=== PATIENT | male | born 1985 | race Caucasian/White ===

== ENCOUNTER 2016-12-17 11:14 | Emergency (ER) | payer MEDICAID ==
[~2016-12-17] VITALS: Ht 167.6 cm; Wt 77.1 kg
[2016-12-17 11:36] VITALS: BP 159/115
== END 2016-12-17 12:08 | disposition home or self-care (01) ==
LOC: ER 11:14
DX: J01.90 Acute sinusitis, unspecified (principal); H66.92 Otitis media, unspecified, left ear; Z88.8 Allergy status to other drugs, medicaments and biological substances

== ENCOUNTER → 2019-05-21 | Emergency (ER) | payer MEDICAID ==
[~2019-05-21] VITALS: Ht 167.6 cm; Wt 68.0 kg
[~2019-05-21] MED LIST: AZITHROMYCIN 500MG/ 250ML 250 ML IV ONE; SODIUM CHLORIDE 0.9% 1,000 ML IV ONE
[2019-05-21 22:34] LABS: Basophils # (auto) 0.1 10 ^3/uL (0-0.2); Basophils % (auto) 0.5 % (0.0-2.0); Eosinophils # (auto) 0.1 10 ^3/uL (0-0.8); Eosinophils % (auto) 0.9 % (0.0-7.0); Hematocrit 42.8 % (41.0-53.0); Hemoglobin 14.5 g/dL (13.5-17.5); Lymphocytes # (auto) 1.7 10 ^3/uL (0.4-5.4); Lymphocytes % (auto) 10.7 % (10.0-50.0); Mean Corpuscular Hemoglobin 29.6 pg (28.0-32.0); Mean Corpuscular Hgb Conc. 33.8 g/dL (32.0-36.0); Mean Corpuscular Volume 87.7 fL (80.0-100.0); Monocytes # (auto) 0.8 10 ^3/uL (0-1.3); Monocytes % (auto) 5.2 % (0.0-12.0); Neutrophils # (auto) 12.9 10 ^3/uL (1.6-8.6); Neutrophils % (auto) 82.7 % (37.0-80.0); Platelet Count (auto) 472 10^3/uL (140-450); Red Blood Cells 4.88 10^6/uL (4.5-5.90); Red Cell Distribution Width 13.4 % (11.8-14.3); White Blood Cell 15.6 10^3/uL (4.4-10.8)
[2019-05-21 23:06] LABS: Albumin 2.7 g/dL (3.4-5.0); BUN/Creatinine Ratio 15.3; Calcium 8.6 mg/dL (8.5-10.1); Potassium 3.8 mmol/L (3.5-5.1)
[2019-05-21 23:09] LABS: Bilirubin, Total 0.3 mg/dL (0.2-1.0)
[2019-05-22 02:16] VITALS: BP 128/74
== END | disposition home or self-care (01) ==
LOC: ER 21:08
DX: J06.9 Acute upper respiratory infection, unspecified (principal)
CPT/HCPCS: 36415; 71045; 80053; 83605; 85025; 87040; 96365; 96366; 99284; J0456

== ENCOUNTER 2019-12-01 21:11 | Inpatient (IN) | payer MEDICAID ==
[~2019-12-01] VITALS: Ht 167.6 cm; Wt 67.6 kg
[2019-12-02] MEDS ORDERED: PIPERACILLIN-TAZOB 3.375GM 100 ML IV ONE (03:45)
[2019-12-02 04:46] LABS: Basophils # (auto) 0.1 10 ^3/uL (0-0.2); Basophils % (auto) 0.4 % (0.0-2.0); Eosinophils # (auto) 0.3 10 ^3/uL (0-0.8); Eosinophils % (auto) 2.2 % (0.0-7.0); Hematocrit 40.4 % (41.0-53.0); Hemoglobin 13.7 g/dL (13.5-17.5); Lymphocytes # (auto) 2.4 10 ^3/uL (0.4-5.4); Lymphocytes % (auto) 20.7 % (10.0-50.0); Mean Corpuscular Hemoglobin 29.1 pg (28.0-32.0); Mean Corpuscular Volume 85.4 fL (80.0-100.0); Monocytes # (auto) 1.1 10 ^3/uL (0-1.3); Monocytes % (auto) 9.3 % (0.0-12.0); Neutrophils # (auto) 7.7 10 ^3/uL (1.6-8.6); Neutrophils % (auto) 67.4 % (37.0-80.0); Nucleated Red Blood Cells % 0.1 %; Platelet Count (auto) 321 10^3/uL (140-450); Red Blood Cells 4.73 10^6/uL (4.5-5.90); Red Cell Distribution Width 15.6 % (11.8-14.3); White Blood Cell 11.4 10^3/uL (4.4-10.8)
[2019-12-02 05:00] LABS: Albumin 3.3 g/dL (3.4-5.0); BUN/Creatinine Ratio 11.5; Calcium 8.6 mg/dL (8.5-10.1); Potassium 3.6 mmol/L (3.5-5.1)
[2019-12-02 05:04] LABS: Bilirubin, Total 0.3 mg/dL (0.2-1.0); INR 0.97 (0.9-1.15); Total Protein 7.3 g/dL (6.4-8.2)
[2019-12-02] MEDS ORDERED: ACETAMINOPHEN 325 MG TAB PO PRN (06:15)
[2019-12-02] MEDS ORDERED: MORPHINE SULF INJ 2 MG/ML SYRINGE 1ML IV PRN (06:15)
[2019-12-02] MEDS ORDERED: NITROGLYCERIN 0.4 MG SL TAB SL PRN (06:15)
[2019-12-02] MEDS ORDERED: ONDANSETRON HCL 4 MG/2 ML VIAL IV PRN (06:15)
[2019-12-02] MEDS ORDERED: DOCUSATE SOD 100 MG CAP PO PRN (06:15)
[2019-12-02] MEDS: ZINC SULFATE 220mg CAP or TAB PO SCH (10:02)
[2019-12-02] MEDS: FAMOTIDINE 20 MG TAB PO SCH ×2 (10:02→22:13)
[2019-12-02] MEDS: ASCORBIC ACID 500 MG TAB PO SCH ×2 (10:03→22:12)
[2019-12-02] MEDS: ENOXAPARIN SOD 40 MG/0.4 ML SYRINGE SC SCH (10:03)
[2019-12-02] MEDS: HYDROcodone-ACET 5/325MG TAB PO PRN ×3 (10:04→22:17)
[2019-12-02 10:06] LABS: Basophils # (auto) 0 10 ^3/uL (0-0.2); Basophils % (auto) 0.3 % (0.0-2.0); Eosinophils # (auto) 0.2 10 ^3/uL (0-0.8); Eosinophils % (auto) 2.1 % (0.0-7.0); Hemoglobin 14.3 g/dL (13.5-17.5); Lymphocytes # (auto) 1.5 10 ^3/uL (0.4-5.4); Lymphocytes % (auto) 17.8 % (10.0-50.0); Mean Corpuscular Hemoglobin 28.9 pg (28.0-32.0); Mean Corpuscular Hgb Conc. 34.1 g/dL (32.0-36.0); Mean Corpuscular Volume 84.6 fL (80.0-100.0); Monocytes # (auto) 0.8 10 ^3/uL (0-1.3); Monocytes % (auto) 9.5 % (0.0-12.0); Neutrophils % (auto) 70.3 % (37.0-80.0); Nucleated Red Blood Cells % 0.2 %; Platelet Count (auto) 331 10^3/uL (140-450); Red Blood Cells 4.96 10^6/uL (4.5-5.90); Red Cell Distribution Width 15.3 % (11.8-14.3); White Blood Cell 8.5 10^3/uL (4.4-10.8)
[2019-12-02 10:24] LABS: Calcium 8.9 mg/dL (8.5-10.1); Potassium 3.7 mmol/L (3.5-5.1)
--- NOTE | 2019-12-02 12:13 | NUR ---
MS admit from ER NATASHA QUINTERO admitted to tele/MS after SBAR received. Patient oriented to primary RN, unit, room, bed, and unit policies regarding patient care. Patient weighed by bedscale and encouraged to call if they need something. All questions and concerns addressed, patient verbalized understanding.
[2019-12-02 13:00] VITALS: BP 135/78
[2019-12-02] MEDS ORDERED: PIPERACILLIN-TAZOB 3.375GM 100 ML IV SCH (14:00)
[2019-12-02] MEDS: PIPERACILLIN-TAZOB 3.375GM 100 ML IV SCH ×2 (14:10→22:14)
[2019-12-02] MEDS: SODIUM CHLOR 0.9% PF (SALINE LOCK) 10ML VIAL/SYR IV SCH ×2 (14:11→22:11)
[2019-12-02] MEDS: BISACODYL 5 MG EC TAB PO SCH (14:17)
--- NOTE | 2019-12-02 16:56 | NUR ---
PT REPORTS THAT HE WALKS FINE AND HIS HAND IS FEELING BETTER. PT DENIES NEED FOR P.T.
[2019-12-02 17:09] VITALS: BP 118/72
--- NOTE | 2019-12-02 19:55 | NUR ---
Opening Shift Note Assumed care of patient, awake and alert. No S/S of distress/SOB. Instructed on POC and to call for assist PRN. Bed is in lowest locked position with bed rails up and call light is within reach of the patient.
[2019-12-02 22:00] VITALS: BP 104/57
[2019-12-02] MEDS: SENNA 8.6 MG TAB PO SCH (22:13)
[2019-12-03 05:00] VITALS: BP 135/72
[2019-12-03 05:22] LABS: Urine Bacteria FEW /hpf (None Seen); Urine Blood TRACE /uL (Negative); Urine WBC 1 /hpf (0 - 3)
[2019-12-03] MEDS: SODIUM CHLOR 0.9% PF (SALINE LOCK) 10ML VIAL/SYR IV SCH ×3 (05:33→21:30)
[2019-12-03] MEDS: PIPERACILLIN-TAZOB 3.375GM 100 ML IV SCH ×3 (05:37→21:29)
[2019-12-03 05:46] LABS: Amphetamine Screen, Urine POSITIVE (NEGATIVE); Barbiturate Scree,Urine NEGATIVE (NEGATIVE); Benzodiazephine Screen, Urine NEGATIVE (NEGATIVE); Cannabinoid Screen, Urine NEGATIVE (NEGATIVE); Cocaine Screen, Urine NEGATIVE (NEGATIVE); Opiate Scree,Urine POSITIVE (NEGATIVE)
[2019-12-03 05:53] LABS: Phencyclidine Screen, Urine NEGATIVE (NEGATIVE)
[2019-12-03 07:40] LABS: Hematocrit 44.7 % (41.0-53.0); Hemoglobin 14.9 g/dL (13.5-17.5); Mean Corpuscular Hemoglobin 29.4 pg (28.0-32.0); Mean Corpuscular Hgb Conc. 33.3 g/dL (32.0-36.0); Mean Corpuscular Volume 88.1 fL (80.0-100.0); Platelet Count (auto) 351 10^3/uL (140-450); Red Blood Cells 5.07 10^6/uL (4.5-5.90); White Blood Cell 9.1 10^3/uL (4.4-10.8)
[2019-12-03 07:41] LABS: Band Neutrophils % (manual) 0; Basophils % (manual) 0 (0.0-2.0); Blast Cells 0; Metamyelocytes % 0; Myelocytes % 0; Promyelocytes % 0; Reactive Lymphocytes 0
[2019-12-03 07:56] LABS: Albumin 2.9 g/dL (3.4-5.0); BUN/Creatinine Ratio 10.8; Bilirubin, Total 0.4 mg/dL (0.2-1.0); Calcium 8.9 mg/dL (8.5-10.1); Total Protein 6.9 g/dL (6.4-8.2)
[2019-12-03 08:25] VITALS: BP 123/82
[2019-12-03] MEDS: BISACODYL 5 MG EC TAB PO SCH (10:12)
[2019-12-03] MEDS: ZINC SULFATE 220mg CAP or TAB PO SCH (10:12)
[2019-12-03] MEDS: ENOXAPARIN SOD 40 MG/0.4 ML SYRINGE SC SCH (10:12)
[2019-12-03] MEDS: FAMOTIDINE 20 MG TAB PO SCH ×2 (10:12→21:29)
[2019-12-03] MEDS: ASCORBIC ACID 500 MG TAB PO SCH ×2 (10:13→21:30)
[2019-12-03] MEDS: HYDROcodone-ACET 5/325MG TAB PO PRN ×3 (10:13→22:50)
[2019-12-03 12:33] LABS: Eosinophils % (manual) 6 (0-7); Lymphocytes % (manual) 21 (10.0-50.0); Monocytes % (manual) 7 (0-12)
[2019-12-03 13:00] VITALS: BP 122/76
[2019-12-03 16:43] VITALS: BP 126/77
[2019-12-03] MEDS ORDERED: CLINDAMYCIN 300MG IV 50 ML IV ONE (19:00)
--- NOTE | 2019-12-03 19:40 | NUR ---
OPENING NOTE Received report from day shift RN. Patient is A&O X's 4 with no s/s of distress and has no complaints at this time. Educated patient on POC and to use call light when in need of any assistance. Patient verbalized understanding. Bed is in lowest/locked position with side rails up X's 2 and call light is within reach of patient. Will continue care.
[2019-12-03] MEDS: SENNA 8.6 MG TAB PO SCH (21:28)
--- NOTE | 2019-12-03 21:30 | NUR ---
IV insertion IV access obtained, via clean sterile technique by inserting 22 gauge catheter at RIGHT WRIST after TWO attempt(s). IV secured properly. No trauma to site. Patient tolerated procedure well.
--- NOTE | 2019-12-03 21:30 | NUR ---
IV removal 20G IV to left upper arm accidently removed by patient when patient was turning in bed. catheter fully intact. No trauma noted to site. Will insert new IV
[2019-12-03 22:00] VITALS: BP 138/75
[2019-12-04] MEDS: CLINDAMYCIN 300MG IV 50 ML IV SCH ×3 (02:45→18:02)
[2019-12-04] MEDS: HYDROcodone-ACET 5/325MG TAB PO PRN ×4 (02:53→20:48)
--- NOTE | 2019-12-04 02:53 | NUR ---
IV insertion IV access obtained, via clean sterile technique by inserting 22 gauge catheter at right hand after one attempt. IV secured properly. No trauma to site. Patient tolerated well. Patient accidently pulled out 22G IV to right wrist when sleeping. No trauma noted to site.
[2019-12-04 05:00] VITALS: BP 129/78
[2019-12-04] MEDS: SODIUM CHLOR 0.9% PF (SALINE LOCK) 10ML VIAL/SYR IV SCH ×3 (05:35→20:53)
[2019-12-04] MEDS: PIPERACILLIN-TAZOB 3.375GM 100 ML IV SCH ×3 (05:36→20:53)
[2019-12-04 06:38] LABS: Basophils # (auto) 0.1 10 ^3/uL (0-0.2); Basophils % (auto) 0.9 % (0.0-2.0); Eosinophils # (auto) 0.1 10 ^3/uL (0-0.8); Eosinophils % (auto) 1.3 % (0.0-7.0); Hematocrit 46.3 % (41.0-53.0); Hemoglobin 15.5 g/dL (13.5-17.5); Lymphocytes % (auto) 26.4 % (10.0-50.0); Mean Corpuscular Hemoglobin 28.5 pg (28.0-32.0); Mean Corpuscular Hgb Conc. 33.6 g/dL (32.0-36.0); Monocytes # (auto) 0.7 10 ^3/uL (0-1.3); Monocytes % (auto) 9.5 % (0.0-12.0); Neutrophils # (auto) 4.8 10 ^3/uL (1.6-8.6); Neutrophils % (auto) 61.9 % (37.0-80.0); Platelet Count (auto) 400 10^3/uL (140-450); Red Blood Cells 5.44 10^6/uL (4.5-5.90); Red Cell Distribution Width 15.4 % (11.8-14.3); White Blood Cell 7.7 10^3/uL (4.4-10.8)
[2019-12-04 07:08] LABS: Calcium 9.2 mg/dL (8.5-10.1)
[2019-12-04 07:12] LABS: BUN/Creatinine Ratio 8.9
--- NOTE | 2019-12-04 07:45 | NUR ---
RECEIVED PATIENT ALERT AND ORIENTED X4, NOT IN DISTRESS, CLEAR LS IN BILATERAL LUNG LOBES, RR=18 SAT=97%, DEEP BREATHING AND COUGHING WAS ENCOURAGED, DEMONSTRATED UNDERSTANDING, DENIED CHEST PAIN AND SOB, HEART R=76, ABDOMEN SOFT WITH ACTIVE BS, TOLERATED 100% OF PROVIDED BREAKFAST TRAY, LAST BM THIS MORNING REPORTED, C/O LT. ARM AND RT. SIDE BACK PAIN L=5/10 REPORTED, NORCO PO PRN IS PENDING ORDERED, SKIN INTACT WARM TO TOUCH, RADIAL AND PEDAL PULSES PALPABLE, CAP REFILL <3 SECONDS, RESTING ON BED, HEAD OF BED ELEVATED, BED ON LOW POSITION, RAILS UP X2, CALL LIGHT ON REACH, PENDING SS CONSULT, WILL CONTINUE MONITORING.
[2019-12-04] MEDS: ZINC SULFATE 220mg CAP or TAB PO SCH (09:27)
[2019-12-04] MEDS: FAMOTIDINE 20 MG TAB PO SCH ×2 (09:27→20:55)
[2019-12-04] MEDS: BISACODYL 5 MG EC TAB PO SCH (09:27)
[2019-12-04] MEDS: ENOXAPARIN SOD 40 MG/0.4 ML SYRINGE SC SCH (09:28)
[2019-12-04] MEDS: ASCORBIC ACID 500 MG TAB PO SCH ×2 (10:00→20:55)
--- NOTE | 2019-12-04 10:56 | NUR ---
NORCO PO PRN WAS GIVEN FOR GENERALIZED PAIN L=6/10, PAIN LEVEL SUBSIDED TO 4/10, TOLERATED SHOWER INDEPENDENTLY, RESTING ON BED, WILL CONTINUE MONITORING.
[2019-12-04 13:00] VITALS: BP 136/87
--- NOTE | 2019-12-04 13:47 | NUR ---
Assessment Social Service consult regarding patient being homeless. Patient states he was incarcerated and when he got release he did not want to return home with family and decided to stay in the streets. Discussed with patient options and resources for placement. Provided information to clothes closet and meal prior to discharge. Patient accepted. Offered patient taxi voucher within 30 miles and Patient agreed. Patient informed me he is planning to go to [place] an get into a program for his drug use before returning home with family. Completed home less assessment and patient signed homeless waiver. Will follow-up and provide intervention as appropriate. Informed KYLE Armando. Addendum: 12/04/19 at 1348 by VANDANA HOWELL Amended: Links added.
--- NOTE | 2019-12-04 16:44 | NUR ---
CONSENT FOR SMOKING SIGNED AND ON CHART, WENT WALKING OUT OF THE UNIT FOR SMOKING X2, PULL OUT RT. HAND IV SITE, PENDING NEW IV INSERTION, WILL CONTINUE MONITORING.
[2019-12-04 16:59] VITALS: BP 118/89
--- NOTE | 2019-12-04 18:05 | NUR ---
NEW IV SITE GARETT 22 INSERTED ON LT LOWER ARM, TOLERATED WELL, NOT IN DISTRESS, DENIED PAIN, SITTING ON BED EATING DINNER, WILL CONTINUE MONITORING.
--- NOTE | 2019-12-04 19:30 | NUR ---
RESTING ON BED, HEAD OF BED ELEVATED, BED ON LOW POSITION, RAILS UP X2, CALL LIGHT ON REACH, REPORT WAS GIVEN TO THE HOOKING MACHINE OPERATOR RN.
--- NOTE | 2019-12-04 19:40 | NUR ---
OPENING NOTE Received report from day shift RN. Patient is A&O X's 4 with no s/s of distress and has no complaints at this time. He is currently talking on the phone. Will educate patient on POC and to use call light when in need of any assistance. Patient verbalized understanding. Bed is in lowest/locked position with side rails up X's 2 and call light is within reach of patient. Will continue care.
[2019-12-04] MEDS: SENNA 8.6 MG TAB PO SCH (20:55)
[2019-12-04 22:00] VITALS: BP 133/58
[2019-12-05] MEDS: HYDROcodone-ACET 5/325MG TAB PO PRN ×2 (02:45→12:15)
[2019-12-05] MEDS: CLINDAMYCIN 300MG IV 50 ML IV SCH ×2 (02:47→11:00)
[2019-12-05 05:00] VITALS: BP 143/82
[2019-12-05] MEDS: SODIUM CHLOR 0.9% PF (SALINE LOCK) 10ML VIAL/SYR IV SCH ×2 (05:52→14:00)
[2019-12-05] MEDS: PIPERACILLIN-TAZOB 3.375GM 100 ML IV SCH (05:52)
[2019-12-05 09:00] VITALS: BP 119/74
[2019-12-05] MEDS: BISACODYL 5 MG EC TAB PO SCH (10:00)
[2019-12-05] MEDS: ASCORBIC ACID 500 MG TAB PO SCH (10:19)
[2019-12-05] MEDS: ZINC SULFATE 220mg CAP or TAB PO SCH (10:19)
[2019-12-05] MEDS: ENOXAPARIN SOD 40 MG/0.4 ML SYRINGE SC SCH (10:20)
[2019-12-05] MEDS: FAMOTIDINE 20 MG TAB PO SCH (10:20)
--- NOTE | 2019-12-05 12:45 | NUR ---
Nutrition Assessment Notes Please refer to link for full assessment notes. Est Energy needs: [id number] kcals (25-30 kcal/kgBW) Est Protein needs: 54-68 gms/day (1.0-1.1 gm/kgBW) Will continue to monitor and reassess prn. Addendum: 12/05/19 at [address] Amended: Links added.
[2019-12-05 13:00] VITALS: BP 134/85
[2019-12-05] MEDS ORDERED: CLINDAMYCIN HCL 150 MG CAP PO SCH (14:00)
--- NOTE | 2019-12-05 14:55 | NUR ---
Discharge instructions given as ordered. Encourage to follow up with PMD as instructed. All questions and concerns addressed. Patient verbalized understanding. Medication reconciliation form completed and copy given to patient. Home medications held in Pharmacy returned to patient. IV removed with catheter intact, pressure dressing applied. Patient AMBULATED to vehicle with all personal belongings, accompanied by staff. No distress noted at time of departure.
[2019-12-05] MEDS ORDERED: CIPROFLOXACIN HCL 500 MG TAB PO SCH (22:00)
== END 2019-12-05 14:55 | disposition home or self-care (01) | DRG 383 ==
LOC: ER 21:11 → OVERFLOW 21:12 → WEST WING 12-02 12:18
PROVIDERS: ADMIT Nurse Practitioner Family; ATTEND Internal Medicine
DX: L03.114 Cellulitis of left upper limb (principal); F15.10 Other stimulant abuse, uncomplicated; D72.829 Elevated white blood cell count, unspecified; K59.00 Constipation, unspecified; S27.329A Contusion of lung, unspecified, initial encounter; S60.222A Contusion of left hand, initial encounter; R07.89 Other chest pain; F10.10 Alcohol abuse, uncomplicated; V28.9XXA Unspecified motorcycle rider injured in noncollision transport accident in traffic accident, initial encounter; Z59.0 Homelessness; Z88.1 Allergy status to other antibiotic agents; Z71.51 Drug abuse counseling and surveillance of drug abuser; Y93.89 Activity, other specified; Y92.89 Other specified places as the place of occurrence of the external cause; Y99.8 Other external cause status; Z20.828 Contact with and (suspected) exposure to other viral communicable diseases; R91.8 Other nonspecific abnormal finding of lung field
CPT/HCPCS: 36415; 71101; 71250; 72128; 73120; 73201; 74176; 80048; 80053; 80307; 81001; 85007; 85025; 85027; 85379; 85610; 87426; 93971; 96365; 96366; 96372; G0378; J2543; J3490

== ENCOUNTER 2020-09-30 11:21 | Emergency (ER) | payer MEDICAID ==
[~2020-09-30] VITALS: Ht 167.6 cm; Wt 70.3 kg
[2020-09-30] MEDS ORDERED: FLUORESCEIN SOD OPTH TEST STRIP RIGHTEYE ONE (12:15)
[2020-09-30] MEDS ORDERED: TETRACAINE HCL 0.5% OPTH(EYE) SOLN 4ML RIGHTEYE ONE (12:15)
[2020-09-30 13:18] VITALS: BP 131/94
== END 2020-09-30 13:47 | disposition home or self-care (01) ==
LOC: ER 11:21
DX: S05.01XA Injury of conjunctiva and corneal abrasion without foreign body, right eye, initial encounter (principal); Z88.8 Allergy status to other drugs, medicaments and biological substances; X58.XXXA Exposure to other specified factors, initial encounter; Y93.89 Activity, other specified; Y92.89 Other specified places as the place of occurrence of the external cause; Y99.8 Other external cause status